=== PATIENT | female | born 1980 | race African-American/Black ===

== ENCOUNTER 2018-10-08 22:37 | Emergency (ER) | payer MEDICAID ==
[~2018-10-08] VITALS: Ht 165.1 cm; Wt 66.7 kg
[2018-10-08 22:45] VITALS: BP 106/55
--- NOTE | 2018-10-08 23:03 | PHYS DOC ---
Past Medical History Past Medical History: TB Past Surgical History: Tubal ligation Alcohol Use: Rarely Drug Use: None Adult General Chief Complaint Chief Complaint: WRIST PAIN HPI HPI Patient is a 38-year-old female who presents with complaint of left wrist pain and injury after falling while roller skating yesterday. Patient states that her feet went out from under her and she fell on outstretched hand. She denies any other injuries. She rates pain as moderate and states the pain is worsened with palpation and movement of the wrist. Review of Systems Review of Systems Constitutional: Denies fever or chills [] Respiratory: Denies cough or shortness of breath [] Cardiovascular: No additional information not addressed in HPI [] Musculoskeletal: Positive left wrist pain [] Integument: Denies rash or skin lesions [] Allergies Allergies Allergies Coded Allergies Type Severity Reaction Last Updated Verified oxycodone Allergy Unknown 10/08/18 Yes Physical Exam Physical Exam Constitutional: Well developed, well nourished, no acute distress, non-toxic appearance. [] Cardiovascular:Heart rate regular rhythm, no murmur [] Lungs & Thorax: Bilateral breath sounds clear to auscultation [] Extremities: Examination of left wrist demonstrates tenderness to palpation to both the radial and ulnar aspects of the wrist. There is mild soft tissue swelling noted around the ulnar aspect of the wrist. No ecchymosis or deformity is noted. [] Neurologic: Alert and oriented X 3, no focal deficits noted. [] Current Patient Data Vital Signs Vital Signs Date Time Temp Pulse Resp B/P (MAP) Pulse Ox O2 Delivery O2 Flow Rate FiO2 10/08/18 22:45 98.1 81 16 106/55 (72) 99 Room Air 98.1 EKG EKG [] Radiology/Procedures Radiology/Procedures [] Impressions: X-ray demonstrates no acute bony abnormality of the wrist Course & Med Decision Making Course & Med Decision Making Pertinent Labs and Imaging studies reviewed. (See chart for details) [] Dragon Disclaimer Dragon Disclaimer This electronic medical record was generated, in whole or in part, using a voice recognition dictation system. Departure Departure Impression: Primary Impression: Left wrist sprain Disposition: 01 HOME, SELF-CARE Condition: STABLE Patient Instructions: Joint Sprain Scripts Diclofenac Sodium (DICLOFENAC SODIUM) 50 Mg Tablet.dr 1 TAB PO BID PRN for PAIN, #20 TAB Prov: MORGAN MIN Jr. DO 10/08/18 Problem Qualifiers Primary Impression: Left wrist sprain Encounter type: initial encounter Qualified Codes: S63.502A - Unspecified sprain of left wrist, initial encounter MORGAN MIN Jr. DO Oct 08, 2018 23:03
[2018-10-08] MEDS ORDERED: DICL50TA4 PO (23:54)
[2018-10-09] MEDS ORDERED: traMADol 50 MG TABLET ONE (00:10)
--- NOTE | 2018-10-09 08:39 | RAD ---
3 view left wrist HISTORY: Pain status post fall AP lateral oblique views The visualized osseous structures appear normal. IMPRESSION: No acute findings. Electronically signed by: Zachery Matthews III, MD (10/09/2018 8:36 AM) [facility]
== END 2018-10-09 00:05 | disposition home or self-care (01) ==
LOC: ER 22:37
DX: S63.502A Unspecified sprain of left wrist, initial encounter (principal); Z88.5 Allergy status to narcotic agent; V00.128A Other non-in-line roller-skating accident, initial encounter; Y93.51 Activity, roller skating (inline) and skateboarding; Y92.488 Other paved roadways as the place of occurrence of the external cause; Y99.8 Other external cause status
CPT/HCPCS: 73110; 99284